=== PATIENT | male | born 1970 | race Caucasian/White ===

== ENCOUNTER → 2018-03-20 19:04 | Outpatient (CLI) | payer OTHER, SELFPAY ==
--- NOTE | 2018-03-20 19:08 | DI.MRI.S_ITS ---
PROCEDURE: MR HEAD/BRAIN WO/W CON INDICATIONS: BENIGH NEOPLASM OF CRANIAL NERVE TECHNIQUE: Noncontrast axial T1 spin echo, axial T2 fast spin echo, sagittal and axial FLAIR, coronal T2 fast spin echo, axial gradient echo, axial diffusion and ADC through the brain. After the administration of contrast, axial and coronal 3D VIBE or T1 spin echo with fat saturation through the brain. COMPARISON: [facility], MR, MR BRAIN WITH/WITHOUT CONTRAST, 06/19/2017, 8:14. FINDINGS: Image quality: Excellent. CSF Spaces: Basal cisterns are patent. No extra-axial fluid collections. Ventricles are normal in size and shape. Brain: No midline shift. No acute intracranial bleeds or masses. Mild relatively increased dural enhancement deep to the left parietal craniotomy is present, as before. No regions of masslike or nodular intracranial enhancement are present. The brainstem appears normal. Diffusion-weighted images demonstrate no acute ischemic insults. No chronic ischemic insults. Normal intravascular flow voids are present. Skull and face: Status post left parietal craniotomy. Ill-defined enhancement within the left parietal calvarium extending into the left scalp has increased, currently measuring roughly 15 mm in thickness (previously measuring 12 mm in thickness). Orbits appear normal. Sinuses: Sinuses and mastoids appear clear. IMPRESSION: 1. Progressive left parietal calvarial and scalp lesion, compatible with progressive meningioma/schwannoma. No evidence of intracranial extension. Dictated by: Celena Greene M.D. on 03/21/2018 at 10:17 Approved by: Celena Greene M.D. on 03/21/2018 at 10:23
== END ==
PROVIDERS: Visit Provider Neurological Surgery
DX: D33.3 Benign neoplasm of cranial nerves (principal)
CPT/HCPCS: 70553; A9579

== ENCOUNTER → 2019-11-13 12:33 | Outpatient (CLI) | payer OTHER, SELFPAY ==
--- NOTE | 2019-11-13 | DI.MRI.S_ITS ---
PROCEDURE: MR HEAD/BRAIN WO/W CON INDICATIONS: Benign neoplasm of meninges, unspecified TECHNIQUE: Noncontrast axial T1 spin echo, axial T2 fast spin echo, sagittal and axial FLAIR, coronal T2 fast spin echo, axial gradient echo, axial diffusion and ADC through the brain. After the administration of contrast, axial and coronal 3D VIBE or T1 spin echo with fat saturation through the brain. COMPARISON: [facility], CR, XR SKULL 4VW, 07/26/2015, 9:57. [facility], MR, MR BRAIN W&WO CON, 08/10/2015, 10:21. [facility], MR, MR HEAD/BRAIN WO/W CON, 03/20/2018, 19:17. FINDINGS: Image quality: Excellent. CSF Spaces: Basal cisterns are patent. No extra-axial fluid collections. Ventricles are normal in size and shape. Brain: No midline shift. No intracranial bleeds or brain tissue masses. There is, however, a band of dural thickening that is relatively thin but has been previously present along the paramedian left parietal lobe, with overlying calvarial thickening and distortion. This has been present since 08/10/15 brain MRI, and biplane film imaging the calvarial thickening includes a periosteal thickening and proliferative pattern. There is, also from a 07/26/15 plain film study of the calvarium. No additional area of abnormal intracranial enhancement. The brainstem appears normal. Diffusion-weighted images demonstrate no acute ischemic insults. No chronic ischemic insults. Normal intravascular flow voids are present. Skull and face: Calvarial marrow is normal in signal. Orbits appear normal. Sinuses: Sinuses and mastoids appear clear. IMPRESSION: Unusual pattern of a thin meningeal enhancing lesion over the left paramedian parietal brain parenchyma, likely a plaque-like meningioma, with a calvarial periosteal proliferative pattern of thickening initially visualized in July 2015 and not appreciably worsened considering slight differences in technique. Dictated by: Herberth Serrano M.D. on 11/13/2019 at 15:38 Approved by: Herberth Serrano M.D. on 11/13/2019 at 15:55
== END ==
PROVIDERS: PCP Internal Medicine; Referring Provider Internal Medicine; Visit Provider Neurological Surgery
DX: D32.9 Benign neoplasm of meninges, unspecified (principal)
CPT/HCPCS: 70553; A9579

== ENCOUNTER → 2020-12-13 14:55 | Outpatient (CLI) | payer OTHER, SELFPAY ==
--- NOTE | 2020-12-13 15:00 | DI.RAD.S_ITS ---
PROCEDURE: XR FOOT LT 2V INDICATIONS: PAIN TECHNIQUE: 2 views of the foot were acquired. COMPARISON: None. FINDINGS: Bones: No fractures or dislocations. No suspicious bony lesions. Mild hallux valgus metatarsus prima varus alignment and medial bunion. Mild 1st MTP and diffuse interphalangeal joint space narrowing. Soft tissues: No tibiotalar joint effusion. Achilles tendon appears normal. IMPRESSION: 1. Mild hallux valgus alignment and medial bunion. 2. Mild 1st MTP and diffuse interphalangeal joint degeneration. Dictated by: Juan Antonio Pringle RR Interpreted: Jose Chávez MD on 12/13/2020 at 15:33 Transcribed by: ESEQUIEL on 12/13/2020 at 15:33 Approved by: Jose Chávez M.D. on 12/13/2020 at 17:08
--- NOTE | 2020-12-13 15:00 | DI.MRI.S_ITS ---
PROCEDURE: MR HEAD/BRAIN WO/W CON INDICATIONS: BENIGN NEOPLASISMS TECHNIQUE: Noncontrast axial T1 spin echo, axial T2 fast spin echo, sagittal and axial FLAIR, coronal T2 fast spin echo, axial gradient echo, axial diffusion and ADC through the brain. After the administration of contrast, axial and coronal 3D VIBE or T1 spin echo with fat saturation through the brain. COMPARISON: [facility], MR, MR HEAD/BRAIN WO/W CON, 11/13/2019, 13:00. [facility], MR, MR BRAIN W&WO CON, 08/10/2015, 10:21. [facility], MR, MR HEAD/BRAIN WO/W CON, 03/20/2018, 19:17. FINDINGS: Image quality: Excellent. CSF Spaces: Basal cisterns are patent. No extra-axial fluid collections. Ventricles are normal in size and shape. Brain: No midline shift. No intracranial bleeds or masses. Left parietal dura at is thickened with slightly irregular enhancement in the region of prior left parietal craniotomy. Dural thickening and slightly irregular enhancement is not significantly changed compared to March 20, 2018. The brainstem appears normal. Diffusion-weighted images demonstrate no acute ischemic insults. No chronic ischemic insults. Normal intravascular flow voids are present. Dural sinuses demonstrate normal postcontrast enhancement. Skull and face: Postsurgical changes compatible prior left craniotomy are stable compared to prior exams. There is and ill-defined heterogeneously enhancing mass in the left parietal calvarium and scalp that measures approximately 4.7 x 2.5 x 1.8 centimeters in the current study (4.1 x 2.2 x 1.5 centimeter previously). Orbits appear normal. Sinuses: Mucous retention cyst versus polyps noted in the maxillary sinuses. The mastoids appear clear. IMPRESSION: 1. Left parietal calvarial in scalp enhancing lesion increased in size compared to March 21, 2018 consistent with progression of neoplasm. 2. Otherwise, stable examination. Dictated by: Viry Bethea MD, PhD on 12/13/2020 at 17:08 Approved by: Viry Bethea MD, PhD on 12/13/2020 at 17:18
--- NOTE | 2020-12-13 15:18 | DI.RAD.S_ITS ---
PROCEDURE: XR ANKLE LT 2V INDICATIONS: PAIN TECHNIQUE: 3 views of the ankle were acquired. COMPARISON: None. FINDINGS: Bones: No fractures or dislocations. Ankle mortise is normally aligned. No suspicious bony lesions. Soft tissues: No tibiotalar joint effusion. Achilles tendon appears normal. IMPRESSION: No definite radiographic abnormality. If pain persists with conservative management, consider cross sectional imaging such as CT or MRI for further assessment. Dictated by: Juan Antonio Pringle RR Interpreted: Jose Chávez MD on 12/13/2020 at 15:34 Transcribed by: ESEQUIEL on 12/13/2020 at 15:34 Approved by: Jose Chávez M.D. on 12/13/2020 at 17:08
[2020-12-13 16:40] LABS: Add Manual Diff / Slide Review NO; Basophils Absolute Auto 100 /uL (0-100); Basophils Percent Auto 0.9 % (0-2); Eosinophils Absolute Auto 100 /uL (0-450); Eosinophils Percent Auto 1.4 % (2-4); Hematocrit 41.8 % (41-53); Hemoglobin 13.9 g/dL (13.5-17.5); Lymphocytes Absolute Auto 2900 /uL (1100-4500); Lymphocytes Percent Auto 32.9 % (25-40); Mean Corpuscular HGB Conc 33.2 % (30-36); Mean Corpuscular Volume 90.4 fL (80-100); Monocytes Absolute Auto 700 /uL (0-900); Monocytes Percent Auto 7.8 % (3-14); Neutrophils Absolute Auto 5100 /uL (1500-7000); Platelet Count 228 X10^3/uL (150-400); Red Blood Cell Count 4.62 X10^6/uL (4.5-5.9); Red Cell Distribution Width 13.7 % (11.6-14.8); White Blood Cell Count 8.9 X10^3/uL (4.5-11.0)
[2020-12-13 17:19] LABS: Erythrocyte Sedimentation Rate 1 MM/HR (0-15)
[2020-12-14 17:26] LABS: Alanine Aminotransferase 22 IU/L (<50); Albumin 4.5 g/dL (3.5-5.0); Albumin Globulin Ratio 1.5 (1.0-2.8); Alkaline Phosphatase 75 U/L (38-126); Aspartate Aminotransferase 23 IU/L (17-59); BUN Creatinine Ratio 21.7 (6-22); Bilirubin Total 0.3 mg/dL (0.2-1.3); Blood Urea Nitrogen 25 mg/dL (9-20); C-Reactive Protein Quant 0.5 mg/dL (<1.0); Calcium 9.8 mg/dL (8.4-10.2); Carbon Dioxide 23 mmol/L (22-32); Chloride 109 mmol/L (98-107); Estimated Glomerular Filt Rate > 60.0 mL/min (>60); Glucose 97 mg/dL (70-100); HEMOLYSIS < 15 (0-50); Potassium 3.8 mmol/L (3.4-5.1); Sodium 140 mmol/L (137-145); Total Protein 7.5 g/dL (6.3-8.2); Uric Acid 8.8 mg/dL (3.5-8.5)
[2020-12-14 17:28] LABS: Rheumatoid Factor < 8.6 IU/mL (<12.0)
[2020-12-16 21:07] LABS: CCP Antibodies IgG/IgA 6 units (0-19)
== END ==
PROVIDERS: Internal Medicine Rheumatology; PCP Internal Medicine; Referring Provider Neurological Surgery; Visit Provider Neurological Surgery
DX: D32.9 Benign neoplasm of meninges, unspecified (principal); M79.672 Pain in left foot; M20.12 Hallux valgus (acquired), left foot; M21.612 Bunion of left foot; M19.072 Primary osteoarthritis, left ankle and foot
CPT/HCPCS: 70553; 73600; 73620; 80053; 84550; 85025; 85651; 86140; 86200; 86430

== ENCOUNTER → 2021-12-14 18:56 | Outpatient (CLI) | payer OTHER, SELFPAY ==
--- NOTE | 2021-12-14 | DI.MRI.S_ITS ---
PROCEDURE: MR HEAD/BRAIN WO/W CON INDICATIONS: benign neoplasm of meninges, unspecified TECHNIQUE: Noncontrast axial T1 spin echo, axial T2 fast spin echo, sagittal and axial FLAIR, coronal T2 fast spin echo, axial gradient echo, axial diffusion and ADC through the brain. After the administration of contrast, axial and coronal and sagittal 3D VIBE or T1 spin echo with fat saturation through the brain. COMPARISON: [facility], , MR HEAD/BRAIN WO/W CON, 12/13/2020, 16:01. FINDINGS: Image quality: Excellent. CSF Spaces: Basal cisterns are patent. No extra-axial fluid collections. Ventricles are normal in size and shape. Brain: No midline shift. No intracranial bleeds or masses. No abnormal intracranial enhancement. The brainstem appears normal. Diffusion-weighted images demonstrate no acute ischemic insults. No chronic ischemic insults. Normal intravascular flow voids are present. Skull and face: Postsurgical sequelae within the left superior parietal calvarium. The overlying region of ill-defined enhancement within the scalp and subcutaneous fat is increased slightly in size, measuring roughly 45 mm anteroposterior by 20 mm craniocaudal by 37 mm transverse. This lesion appears to extend into the underlying left superior parietal calvarium, and extends to the inner table, as before. No evidence of intracranial extension is present. Orbits appear normal. Sinuses: Moderate bilateral mastoid fluid. Bilateral maxillary sinus retention cysts present. IMPRESSION: 1. Postsurgical sequelae. 2. Increased ill-defined enhancing soft tissue lesion within the left parietal scalp and calvarium, consistent with progressive neoplasm. 3. Sinus and mastoid disease. Dictated by: Celena Greene M.D. on 12/15/2021 at 8:38 Approved by: Celena Greene M.D. on 12/15/2021 at 8:42
== END ==
PROVIDERS: PCP Internal Medicine; Referring Provider Neurological Surgery; Visit Provider Neurological Surgery
DX: D32.9 Benign neoplasm of meninges, unspecified (principal); J32.8 Other chronic sinusitis
CPT/HCPCS: 70553; A9579

== ENCOUNTER → 2022-07-14 13:06 | Outpatient (CLI) | payer OTHER, SELFPAY ==
--- NOTE | 2022-07-14 | DI.CT.S_ITS ---
PROCEDURE: CT HEAD/BRAIN WO CON INDICATIONS: HEADACHES STATUS POST CRANIOTOMY TECHNIQUE: Noncontrast 4.5 mm thick angled axial sections acquired from the foramen magnum to the vertex, with coronal and sagittal reformats. For radiation dose reduction, the following was used: automated exposure control, adjustment of mA and/or kV according to patient size. COMPARISON: [facility], MR, MR HEAD/BRAIN WO/W CON, 12/13/2020, 16:01. [facility], MR, MR HEAD/BRAIN WO/W CON, 12/14/2021, 19:16. FINDINGS: Image quality: Excellent. CSF spaces: Basal cisterns are patent. No extra-axial fluid collections. Ventricles are normal in size and shape. Brain: Resection change is seen involving the posterior aspect of the left cerebral hemisphere. No midline shift. No intracranial masses or hemorrhage. Ferris-white matter interface is normal. Skull and face: Left posterior craniotomy change is seen. Calvarium and visualized facial bones are intact, without suspicious lesions. Sinuses: Visualized sinuses and mastoids are clear. IMPRESSION: Left posterior craniotomy change, with resection change noted on the left posteriorly. If it would be helpful for clinical management decision making, please consider a dedicated, scheduled brain MRI for further evaluation (assuming that there is no contraindication). Dictated by: Ivan Ybarra M.D. on 07/14/2022 at 12:43 Approved by: Ivan Ybarra M.D. on 07/14/2022 at 12:45
== END ==
PROVIDERS: PCP Internal Medicine; Referring Provider Physician Assistant; Visit Provider Physician Assistant
DX: D32.9 Benign neoplasm of meninges, unspecified (principal); R51.9 Headache, unspecified; Z98.890 Other specified postprocedural states
CPT/HCPCS: 70450

== ENCOUNTER 2022-07-17 06:26 | Emergency (ER) | payer BC, SELFPAY ==
[2022-07-17] VITALS (54 sets, daily range): BP systolic 120–170; BP diastolic 56–93; PULSE 66–90; RESP 13–24; TEMP 37.2; O2SAT 92–100; BMI 42.5
--- NOTE | 2022-07-17 06:41 | DI.CT.S_ITS ---
PROCEDURE: CT ANGIO HEAD AND NECK INDICATIONS: HOOKS, slurring, recent meningioma resection TECHNIQUE: After the administration of intravenous contrast, 1 mm thick sections acquired from the aortic arch through the [place]. Post-contrast 4.5 mm thick sections then re-acquired from the foramen magnum to the vertex. 3-dimensional jjhwnba-vapglevio-lfcxkzdhpi (MIP) and/or volume rendering reformats were acquired of the central intracranial vasculature and neck separately. For radiation dose reduction, the following was used: automated exposure control, adjustment of mA and/or kV according to patient size. COMPARISON: [facility], MR, MR HEAD/BRAIN WO/W CON, 11/13/2019, 13:00. [facility], MR, MR HEAD/BRAIN WO/W CON, 03/20/2018, 19:17. [facility], CT, CT HEAD/BRAIN WO CON, 07/17/2022, 6:51. [facility], CT, CT HEAD/BRAIN WO CON, 07/14/2022, 13:19. [facility], MR, MR HEAD/BRAIN WO/W CON, 12/14/2021, 19:16. [facility], MR, MR HEAD/BRAIN WO/W CON, 12/13/2020, 16:01. FINDINGS: Image quality: Excellent. BRAIN: CSF spaces: Ventricles are normal in size and shape. Basal cisterns are patent. No extra-axial fluid collections. Brain: There is an area of hypodensity in the left parietal lobe, which appears minimally changed from 07/14/2022, but new since 12/14/2021, most likely related to recent craniotomy5. No midline shift. No intracranial bleeds or masses. Ferris-white matter interface appears intact. Skull and face: Postsurgical changes related to left parietal craniotomy. Calvarium and facial bones appear intact, without suspicious lesions. Orbits appear normal. Sinuses: There are mucous retention cysts or polyps in maxillary sinuses bilaterally. The mastoids are clear. HEAD CT ANGIOGRAPHY: Anterior circulation: Intracranial internal carotid arteries are normal in size and flow. The flow within the paired anterior cerebral arteries is normal and symmetric. The flow within the middle cerebral arteries is normal and symmetric. The anterior communicating artery is seen. No aneurysms are seen. Posterior circulation: Visualized portions of the vertebral arteries demonstrate normal caliber, and join to form a normal appearing basilar artery. Flow within the posterior cerebral arteries is normal and symmetric. No aneurysms are seen. NECK CT ANGIOGRAPHY: Carotid system: The great vessels demonstrate a conventional anatomy as they arise from the aortic arch. The origins of the common carotid arteries appear patent. The common carotid arteries demonstrate normal caliber and courses. The bifurcation regions are both widely patent. The internal carotid arteries demonstrate normal calibers and courses. Posterior circulation: The origins of the vertebral arteries both appear widely patent. The more superior extracranial portions of both vertebral arteries also demonstrate normal courses and calibers. They join to form a normal appearing basilar artery. Soft tissues: Visualized neck soft tissues demonstrate no suspicious abnormalities. Bones: No suspicious bony lesions. Visualized cervical spine appears normally aligned. IMPRESSION: 1. Left parietal craniotomy. Hypodensity in the left parietal lobe appears minimally changed since 07/14/2022, but new since 12/14/2022, presumably related to recent surgery. Recommend clinical correlation and comparison to more recent outside imaging studies, if available. If clinical symptoms persist or clinical suspicion for acute pathology is high, MRI is recommended for further evaluation. 2. No hemodynamic significant stenosis in anterior or posterior circulations. 3. No hemodynamic significant stenosis in cervical carotid arteries or vertebral arteries bilaterally. No significant discrepancy with the courtroom clerk radiology preliminary report. Any quantitative measurements of stenosis were performed using NASCET criteria. Dictated by: Joann Figueroa M.D. on 07/17/2022 at 7:50 Approved by: Joann Figueroa M.D. on 07/17/2022 at 8:44
--- NOTE | 2022-07-17 06:42 | DI.CT.S_ITS ---
PROCEDURE: CT HEAD/BRAIN WO CON INDICATIONS: severe HOOKS, slurring words upon waking TECHNIQUE: Noncontrast 4.5 mm thick angled axial sections acquired from the foramen magnum to the vertex, with coronal and sagittal reformats. For radiation dose reduction, the following was used: automated exposure control, adjustment of mA and/or kV according to patient size. COMPARISON: [facility], MR, MR HEAD/BRAIN WO/W CON, 12/14/2021, 19:16. [facility], MR, MR HEAD/BRAIN WO/W CON, 12/13/2020, 16:01. [facility], CT, CT HEAD/BRAIN WO CON, 07/14/2022, 13:19. FINDINGS: Image quality: Excellent. CSF spaces: Basal cisterns are patent. No extra-axial fluid collections. Ventricles are normal in size and shape. Brain: Postsurgical changes are seen in the left parietal lobe with hypodensity compatible with cerebral edema. No midline shift. No intracranial masses or hemorrhage. Ferris-white matter interface is normal. Skull and face: Left parietal craniotomy. Calvarium and visualized facial bones are intact, without suspicious lesions. Sinuses: Bilateral maxillary sinus mucous retention cysts or polyps. The mastoids are clear. IMPRESSION: 1. Stable postsurgical changes in left parietal region. 2. Bilateral maxillary sinus disease. No significant discrepancy with the faculty neuropsychologist radiology preliminary report. Dictated by: Joann Figueroa M.D. on 07/17/2022 at 7:46 Approved by: Joann Figueroa M.D. on 07/17/2022 at 7:49
--- NOTE | 2022-07-17 06:44 | ED.AMS ---
HPI - Altered Mental Status <Theron Mahajan DO - Last Filed: 07/17/22 22:59> General Chief Complaint: Headache Stated Complaint: HX david surgery T-30/ headache/cant speak Time Seen by Provider: 07/17/22 06:41 Related Data Previous Rx's Medication Instructions Recorded colchicine 0.6 mg tablet 0.6 mg PO DAILY #14 tabs 03/13/19 Allergies Allergy/AdvReac Type Severity Reaction Status Date / Time hydrocodone [From Vicodin] AdvReac Intermediate Vomiting Verified 07/17/22 17:17 <Nesha Chávez DO - Last Filed: 07/17/22 19:36> History of Present Illness HPI narrative: This is a 51-year-old male with history of craniotomy May 23 for meningioma, patient's only other medication is allopurinol for gout who presents with complaint of difficulty with talking, expressive aphasia, persistent headaches that have been worsening since July 13. Patient's states that they called [facility] CT surgeons ordered head CT on the which was obtained and did not show any acute changes or swelling. states that headaches have been coming more persistent he is described as shooting from his brain to his eye particularly on the right side. She states he woke up this morning and was not really make any sense and seemed like he was having difficulty saying what he wanted to say. He is had chills and been warm intermittently, no objective fevers but states there lost their thermometer. He has been complaining of sinus congestion and pressure. No complaints of chest pain, no shortness of breath. He has not had any nausea or vomiting, no incontinence of stool or urine. Normal bowel movements. She states this morning he was able to get up and ambulate to the car but that he ran into the door of the car. She states he seems confused. Patient has not had anything for his headache. Allergies state Vicodin but states he is not really allergic, she states no known drug allergies. He does use tobacco daily, no alcohol or illicit. He is had prior ACL replacement had craniotomy in May of 2022 and had a core biopsy in 2015 of the meningioma. Patient's states his only medication is allopurinol. Dr. Feliciano at [facility] performed his surgery. <Nesha Chávez DO - Last Filed: 07/17/22 19:36> Review of Systems ROS Unobtainable: All systems reviewed & are unremarkable except as noted in HPI and below (obtained mainly from spouse) Patient History <Theron DO Keyshawn - Last Filed: 07/17/22 22:59> Social History Smoking Status: Current every day smoker Exam <Theronhandy Mahajan DO - Last Filed: 07/17/22 22:59> Initial Vital Signs Initial Vital Signs: Vital Signs Pulse Rate 83 07/17/22 06:44 Respiratory Rate 16 07/17/22 06:44 Pulse Oximetry 99 07/17/22 06:44 <Nesha Chávez DO - Last Filed: 07/17/22 19:36> Narrative Exam Narrative: GEN: Obese male, alert and oriented self and location, answer some questions but does not follow commands, patient appears to be in moderate to severe distress. HEENT: Atraumatic, pupils are equal round reactive to light, extraocular movements are intact, nares are clear, TMs are clear with no fluid, there is no conjunctival pallor. Throat is clear without any exudates, erythema, tonsillar enlargement or uvular deviation, difficult to assess facial droop. Patient does not follow coming to smile. Possible on the right. No obvious palsy noted. HEART: Regular rate and rhythm without murmur, clicks, rubs. pulses are equal in upper and lower extremities LUNGS:Lungs clear to auscultation, no wheezes, rales, crackles, chest moves symmetrically ABD:bowel sounds normal, soft, non-tender, no guarding, rebound, rigidity, no masses noted, no hepatosplenomegaly :No CVA tenderness MSCL: Non-tender, no muscle atrophy, muscles strength 5/5 upper and lower extremities, full range of motion, patient does appear to have some drift on the right but patient did not follow all commands for me to fully assess. NEURO:CN 2-12 intact, sensation normal, reflexes 2/4 upper and lower extremities. finger nose finger test performed on left but not on right, heel mendez test not tested. SKIN: No rash, no erythema or other skin changes noted. Initial Vital Signs Initial Vital Signs: Vital Signs Pulse Rate 83 07/17/22 06:44 Respiratory Rate 16 07/17/22 06:44 Pulse Oximetry 99 07/17/22 06:44 Scores <Theron Mahajan, DO - Last Filed: 07/17/22 22:59> GCS [place] coma scale total score: 13 <Nesha Chávez, DO - Last Filed: 07/17/22 19:36> GCS Wilfredo coma scale eye opening: Spontaneous [place] coma scale verbal response: Confused [place] coma scale motor response: Localising (occasionally follows commands) [place] coma scale total score: 13 Course <Theron Mahajan, DO - Last Filed: 07/17/22 22:59> Orders Ordered: Acetaminophen (Acetaminophen 325 Mg Tablet) 650 mg PO Q4H PRN PRN Reason: Pain, Moderate (4-6) Stop: 07/20/22 17:12 Last Admin: 07/17/22 17:32 Dose: 650 mg Documented By: CHIQUI Enoxaparin Sodium (Enoxaparin 100 Mg/Ml Syringe) 140 mg SUBCUT BID [facility] Last Admin: 07/17/22 21:19 Dose: 140 mg Documented By: Admin: 07/17/22 10:40 Dose: 140 mg Documented By: SAL Levetiracetam 1,000 mg/ Sodium (Chloride) 110 mls @ 440 mls/hr IV BID [facility] Last Infusion: 07/17/22 21:30 Dose: 0 mls/hr Documented By: Admin: 07/17/22 21:10 Dose: 440 mls/hr Documented By: Infusion: 07/17/22 11:17 Dose: 0 mls/hr Documented By: Admin: 07/17/22 10:41 Dose: 440 mls/hr Documented By: SAL Ketorolac Tromethamine (Ketorolac 30 Mg/Ml Vial) 15 mg IV Q6HR PRN PRN Reason: Pain, Moderate (4-6) Naloxone HCl (Naloxone 0.4 Mg/Ml Vial) 0.2 mg IV Q2MIN PRN PRN Reason: Opiate Reversal Oxycodone HCl (Oxycodone Ir 5 Mg Tablet) 5 mg PO Q3H PRN PRN Reason: Pain, Severe (7-10) Last Admin: 07/17/22 17:32 Dose: 5 mg Documented By: CHIQUI Discontinued Medications Dexamethasone (Dexamethasone 10 Mg/Ml Vial) 10 mg IV NOW ONE Stop: 07/17/22 08:02 Last Admin: 07/17/22 08:10 Dose: 10 mg Documented By: RAMANA Enoxaparin Sodium (Enoxaparin 40 Mg/0.4 Ml Syringe) 140 mg 1 mg/kg (140 mg) SUBCUT BID [facility] Cefepime HCl 2 gm/ Sodium (Chloride) 100 mls @ 200 mls/hr IV NOW ONE Stop: 07/17/22 08:04 Last Infusion: 07/17/22 09:10 Dose: 0 mls/hr Documented By: Infusion: 07/17/22 08:37 Dose: 200 mls/hr Documented By: Infusion: 07/17/22 08:10 Dose: 0 mls/hr Documented By: Admin: 07/17/22 08:10 Dose: 200 mls/hr Documented By: RAMANA Vancomycin HCl/Dextrose (Vancomycin) 2,000 mg in 400 mls @ 200 mls/hr IV NOW ONE Stop: 07/17/22 10:11 Last Infusion: 07/17/22 11:44 Dose: 0 mls/hr Documented By: Admin: 07/17/22 09:27 Dose: 200 mls/hr Documented By: RAMANA Ketorolac Tromethamine (Ketorolac 30 Mg/Ml Vial) 15 mg IV NOW ONE Stop: 07/17/22 10:02 Last Admin: 07/17/22 10:41 Dose: 15 mg Documented By: SAL Morphine Sulfate (Morphine 4 Mg/Ml Inj) 4 mg IV NOW ONE Stop: 07/17/22 07:57 Last Admin: 07/17/22 08:02 Dose: 4 mg Documented By: RAMANA Ondansetron HCl (Ondansetron 4 Mg/2 Ml Inj) 4 mg IV NOW ONE Stop: 07/17/22 07:57 Last Admin: 07/17/22 08:02 Dose: 4 mg Documented By: RAMANA Vital Signs Vital signs: Vital Signs - 8 hr 07/17/22 15:00 07/17/22 15:01 07/17/22 15:01 Pulse Rate 69 69 Respiratory Rate Blood Pressure 161/89 H Pulse Oximetry 95 94 Oxygen Delivery Method Room Air 07/17/22 15:16 07/17/22 15:16 07/17/22 15:30 Pulse Rate 69 Respiratory Rate Blood Pressure 133/62 133/66 Pulse Oximetry 95 Oxygen Delivery Method 07/17/22 15:30 07/17/22 15:45 07/17/22 15:45 Pulse Rate 68 77 Respiratory Rate Blood Pressure 129/74 Pulse Oximetry 95 Oxygen Delivery Method Room Air 07/17/22 16:00 07/17/22 16:00 07/17/22 16:30 Pulse Rate 71 69 Respiratory Rate 18 Blood Pressure 141/75 H Pulse Oximetry 94 98 Oxygen Delivery Method Room Air 07/17/22 16:31 07/17/22 16:31 07/17/22 17:00 Pulse Rate 70 68 Respiratory Rate Blood Pressure 158/87 H Pulse Oximetry 96 94 Oxygen Delivery Method 07/17/22 17:01 07/17/22 17:01 07/17/22 17:25 Pulse Rate 70 70 Respiratory Rate Blood Pressure 142/90 H Pulse Oximetry 95 94 Oxygen Delivery Method Room Air 07/17/22 17:31 07/17/22 19:42 07/17/22 20:00 Pulse Rate 76 81 Respiratory Rate 20 Blood Pressure 154/88 H Pulse Oximetry 97 Oxygen Delivery Method Room Air 07/17/22 20:30 07/17/22 21:00 07/17/22 21:30 Pulse Rate 75 72 75 Respiratory Rate 20 22 17 Blood Pressure Pulse Oximetry 93 95 99 Oxygen Delivery Method Room Air 07/17/22 21:35 07/17/22 21:35 07/17/22 22:00 Pulse Rate 74 67 Respiratory Rate 13 19 Blood Pressure 141/81 H Pulse Oximetry 100 96 Oxygen Delivery Method Room Air Room Air 07/17/22 22:30 Pulse Rate 69 Respiratory Rate 16 Blood Pressure Pulse Oximetry 97 Oxygen Delivery Method Room Air <Nesha Chávez DO - Last Filed: 07/17/22 19:36> Orders Ordered: Acetaminophen (Acetaminophen 325 Mg Tablet) 650 mg PO Q4H PRN PRN Reason: Pain, Moderate (4-6) Stop: 07/20/22 17:12 Last Admin: 07/17/22 17:32 Dose: 650 mg Documented By: CHIQUI Enoxaparin Sodium (Enoxaparin 100 Mg/Ml Syringe) 140 mg SUBCUT BID [facility] Last Admin: 07/17/22 21:19 Dose: 140 mg Documented By: Admin: 07/17/22 10:40 Dose: 140 mg Documented By: SAL Levetiracetam 1,000 mg/ Sodium (Chloride) 110 mls @ 440 mls/hr IV BID [facility] Last Infusion: 07/17/22 21:30 Dose: 0 mls/hr Documented By: Admin: 07/17/22 21:10 Dose: 440 mls/hr Documented By: Infusion: 07/17/22 11:17 Dose: 0 mls/hr Documented By: Admin: 07/17/22 10:41 Dose: 440 mls/hr Documented By: MLSara Ketorolac Tromethamine (Ketorolac 30 Mg/Ml Vial) 15 mg IV Q6HR PRN PRN Reason: Pain, Moderate (4-6) Naloxone HCl (Naloxone 0.4 Mg/Ml Vial) 0.2 mg IV Q2MIN PRN PRN Reason: Opiate Reversal Oxycodone HCl (Oxycodone Ir 5 Mg Tablet) 5 mg PO Q3H PRN PRN Reason: Pain, Severe (7-10) Last Admin: 07/17/22 17:32 Dose: 5 mg Documented By: CHIQUI Discontinued Medications Dexamethasone (Dexamethasone 10 Mg/Ml Vial) 10 mg IV NOW ONE Stop: 07/17/22 08:02 Last Admin: 07/17/22 08:10 Dose: 10 mg Documented By: RAMANA Enoxaparin Sodium (Enoxaparin 40 Mg/0.4 Ml Syringe) 140 mg 1 mg/kg (140 mg) SUBCUT BID [facility] Cefepime HCl 2 gm/ Sodium (Chloride) 100 mls @ 200 mls/hr IV NOW ONE Stop: 07/17/22 08:04 Last Infusion: 07/17/22 09:10 Dose: 0 mls/hr Documented By: Infusion: 07/17/22 08:37 Dose: 200 mls/hr Documented By: Infusion: 07/17/22 08:10 Dose: 0 mls/hr Documented By: Admin: 07/17/22 08:10 Dose: 200 mls/hr Documented By: RAMANA Vancomycin HCl/Dextrose (Vancomycin) 2,000 mg in 400 mls @ 200 mls/hr IV NOW ONE Stop: 07/17/22 10:11 Last Infusion: 07/17/22 11:44 Dose: 0 mls/hr Documented By: Admin: 07/17/22 09:27 Dose: 200 mls/hr Documented By: RAMANA Ketorolac Tromethamine (Ketorolac 30 Mg/Ml Vial) 15 mg IV NOW ONE Stop: 07/17/22 10:02 Last Admin: 07/17/22 10:41 Dose: 15 mg Documented By: SAL Morphine Sulfate (Morphine 4 Mg/Ml Inj) 4 mg IV NOW ONE Stop: 07/17/22 07:57 Last Admin: 07/17/22 08:02 Dose: 4 mg Documented By: RAMANA Ondansetron HCl (Ondansetron 4 Mg/2 Ml Inj) 4 mg IV NOW ONE Stop: 07/17/22 07:57 Last Admin: 07/17/22 08:02 Dose: 4 mg Documented By: RAMANA Reevaluation(s) Reevaluation #1: Rechecked, patient's expressive aphasia significantly improve patient's mentation improved this seems much more in line with possible postictal state from seizure activity. No witnessed seizure activity in the department. Patient's has been in the room throughout stay. Time: 11:15 Consultations Consultation #1: [facility] Neurosurgery, Dr. Luis: Discussed patient's findings today. Concerned about sagittal sinus thrombosis who reviewed images does not appreciate thrombosis. Patient does not appear acutely infected he suspect possibly seizure activity or possible sagittal sinus thrombosis. He did review the images himself he does not appreciated but asked us to see if Radiology can take a look if they feel that they can see well enough with the images does not require MR venogram but if not MR venogram would be recommended if we can obtain. We discussed we do not have EEG capabilities. Plan to start Keppra 1000 mg b.i.d., Lovenox DVT dosing on Dr. Luis's recommendations and accepted for transferred but will likely be delayed as there is no capacity currently. Time: 10:41 Consultation #2: Dr. Figueroa, Radiology, we will review images and call back regarding sagittal sinus thrombosis. Not the right type of exam but not definitive thrombosis. MR venogram would be appropriate next step. Time: 10:42 Vital Signs Vital signs: Vital Signs - 8 hr 07/17/22 15:00 07/17/22 15:01 07/17/22 15:01 Pulse Rate 69 69 Respiratory Rate Blood Pressure 161/89 H Pulse Oximetry 95 94 Oxygen Delivery Method Room Air 07/17/22 15:16 07/17/22 15:16 07/17/22 15:30 Pulse Rate 69 Respiratory Rate Blood Pressure 133/62 133/66 Pulse Oximetry 95 Oxygen Delivery Method 07/17/22 15:30 07/17/22 15:45 07/17/22 15:45 Pulse Rate 68 77 Respiratory Rate Blood Pressure 129/74 Pulse Oximetry 95 Oxygen Delivery Method Room Air 07/17/22 16:00 07/17/22 16:00 07/17/22 16:30 Pulse Rate 71 69 Respiratory Rate 18 Blood Pressure 141/75 H Pulse Oximetry 94 98 Oxygen Delivery Method Room Air 07/17/22 16:31 07/17/22 16:31 07/17/22 17:00 Pulse Rate 70 68 Respiratory Rate Blood Pressure 158/87 H Pulse Oximetry 96 94 Oxygen Delivery Method 07/17/22 17:01 07/17/22 17:01 07/17/22 17:25 Pulse Rate 70 70 Respiratory Rate Blood Pressure 142/90 H Pulse Oximetry 95 94 Oxygen Delivery Method Room Air 07/17/22 17:31 07/17/22 19:42 07/17/22 20:00 Pulse Rate 76 81 Respiratory Rate 20 Blood Pressure 154/88 H Pulse Oximetry 97 Oxygen Delivery Method Room Air 07/17/22 20:30 07/17/22 21:00 07/17/22 21:30 Pulse Rate 75 72 75 Respiratory Rate 20 22 17 Blood Pressure Pulse Oximetry 93 95 99 Oxygen Delivery Method Room Air 07/17/22 21:35 07/17/22 21:35 07/17/22 22:00 Pulse Rate 74 67 Respiratory Rate 13 19 Blood Pressure 141/81 H Pulse Oximetry 100 96 Oxygen Delivery Method Room Air Room Air 07/17/22 22:30 Pulse Rate 69 Respiratory Rate 16 Blood Pressure Pulse Oximetry 97 Oxygen Delivery Method Room Air MDM - Altered Mental Status <Theron Mahajan, DO - Last Filed: 07/17/22 22:59> Lab Data 07/17/22 06:50 07/17/22 06:50 Labs: Lab Results 07/17/22 07/17/22 07/17/22 Range/Units 06:00 06:50 06:50 WBC 7.0 (4.5-11.0) X10^3/uL RBC 4.29 L (4.5-5.9) X10^6/uL Hgb 13.0 L (13.5-17.5) g/dL Hct 38.0 L (41-53) % MCV 88.6 (80-100) fL MCH 30.2 (26-34) PG MCHC 34.1 (30-36) % RDW 14.5 (11.6-14.8) % Plt Count 263 (150-400) X10^3/uL Neut % (Auto) 70.5 (50-75) % Lymph % (Auto) 21.0 L (25-40) % Delta % (Auto) 6.7 (3-14) % Eos % (Auto) 1.2 L (2-4) % Baso % (Auto) 0.6 (0-2) % Neut # (Auto) 4900 (8202-8256) /uL Lymph # (Auto) 1500 (1106-9629) /uL Delta # (Auto) 500 (0-900) /uL Eos # (Auto) 100 (0-450) /uL Baso # (Auto) 0 (0-100) /uL PT 13.3 H (10.1-12.7) SECONDS INR 1.2 (0.9-1.3) Sodium (137-145) mmol/L Potassium (3.4-5.1) mmol/L Chloride (98-107) mmol/L Carbon Dioxide (22-32) mmol/L BUN (9-20) mg/dL Creatinine (0.66-1.25) mg/dL Estimated GFR (>60) mL/min BUN/Creatinine Ratio (6-22) Glucose (70-100) mg/dL Lactate (0.7-2.1) mmol/L Calcium (8.4-10.2) mg/dL Magnesium (1.6-2.3) mg/dL Total Bilirubin (0.2-1.3) mg/dL AST (17-59) IU/L ALT (<50) IU/L Alkaline Phosphatase (38-126) U/L Total Creatine Kinase (55-170) U/L CK-MB (CK-2) CK-MB (CK-2) Rel Index Troponin I (0.01-0.034) ng/mL Total Protein (6.3-8.2) g/dL Albumin (3.5-5.0) g/dL Globulin (1.7-4.1) g/dL Albumin/Globulin Ratio (1.0-2.8) Lipase (23-300) U/L Procalcitonin 0.05 (<0.5) ng/mL Urine Color Urine Appearance Urine pH (4.5-8.0) Ur Specific [place] (1.000-1.035) Urine Protein (Negative) Urine Glucose (UA) (Negative) g/dL Urine Ketones (NEGATIVE) Urine Occult Blood (Negative) Urine Nitrate (Negative) Urine Bilirubin (NEGATIVE) Urine Urobilinogen (0.2) E.U./dL Ur Leukocyte Esterase (NEGATIVE) Urine RBC (0-5/HPF) Urine WBC (0-5/HPF) Ur Squamous Epith Cells (0-5/HPF) Urine Bacteria (None) Ur Culture Indicated? SARS-CoV-2 (PCR) (Negative) Influenza A (RT-PCR) (NEGATIVE) Influenza B (RT-PCR) (NEGATIVE) RSV (PCR) (Negative) 07/17/22 07/17/22 07/17/22 Range/Units 06:50 06:50 07:30 WBC (4.5-11.0) X10^3/uL RBC (4.5-5.9) X10^6/uL Hgb (13.5-17.5) g/dL Hct (41-53) % MCV (80-100) fL MCH (26-34) PG MCHC (30-36) % RDW (11.6-14.8) % Plt Count (150-400) X10^3/uL Neut % (Auto) (50-75) % Lymph % (Auto) (25-40) % Delta % (Auto) (3-14) % Eos % (Auto) (2-4) % Baso % (Auto) (0-2) % Neut # (Auto) (6781-0789) /uL Lymph # (Auto) (6282-8098) /uL Delta # (Auto) (0-900) /uL Eos # (Auto) (0-450) /uL Baso # (Auto) (0-100) /uL PT (10.1-12.7) SECONDS INR (0.9-1.3) Sodium 138 (137-145) mmol/L Potassium 3.5 (3.4-5.1) mmol/L Chloride 105 (98-107) mmol/L Carbon Dioxide 22 (22-32) mmol/L BUN 14 (9-20) mg/dL Creatinine 0.92 (0.66-1.25) mg/dL Estimated GFR > 60 (>60) mL/min BUN/Creatinine Ratio 15.2 (6-22) Glucose 125 H (70-100) mg/dL Lactate 1.5 (0.7-2.1) mmol/L Calcium 9.2 (8.4-10.2) mg/dL Magnesium 1.7 (1.6-2.3) mg/dL Total Bilirubin 0.4 (0.2-1.3) mg/dL AST 17 (17-59) IU/L ALT 20 (<50) IU/L Alkaline Phosphatase 75 (38-126) U/L Total Creatine Kinase 46 L (55-170) U/L CK-MB (CK-2) TNP CK-MB (CK-2) Rel Index TNP Troponin I < 0.012 (0.01-0.034) ng/mL Total Protein 7.6 (6.3-8.2) g/dL Albumin 4.5 (3.5-5.0) g/dL Globulin 3.1 (1.7-4.1) g/dL Albumin/Globulin Ratio 1.5 (1.0-2.8) Lipase 66 (23-300) U/L Procalcitonin (<0.5) ng/mL Urine Color Urine Appearance Urine pH (4.5-8.0) Ur Specific [place] (1.000-1.035) Urine Protein (Negative) Urine Glucose (UA) (Negative) g/dL Urine Ketones (NEGATIVE) Urine Occult Blood (Negative) Urine Nitrate (Negative) Urine Bilirubin (NEGATIVE) Urine Urobilinogen (0.2) E.U./dL Ur Leukocyte Esterase (NEGATIVE) Urine RBC (0-5/HPF) Urine WBC (0-5/HPF) Ur Squamous Epith Cells (0-5/HPF) Urine Bacteria (None) Ur Culture Indicated? SARS-CoV-2 (PCR) Negative (Negative) Influenza A (RT-PCR) Flu a negative (NEGATIVE) Influenza B (RT-PCR) Flu b negative (NEGATIVE) RSV (PCR) Negative (Negative) 07/17/22 Range/Units 09:30 WBC (4.5-11.0) X10^3/uL RBC (4.5-5.9) X10^6/uL Hgb (13.5-17.5) g/dL Hct (41-53) % MCV (80-100) fL MCH (26-34) PG MCHC (30-36) % RDW (11.6-14.8) % Plt Count (150-400) X10^3/uL Neut % (Auto) (50-75) % Lymph % (Auto) (25-40) % Delta % (Auto) (3-14) % Eos % (Auto) (2-4) % Baso % (Auto) (0-2) % Neut # (Auto) (8453-3344) /uL Lymph # (Auto) (8107-7944) /uL Delta # (Auto) (0-900) /uL Eos # (Auto) (0-450) /uL Baso # (Auto) (0-100) /uL PT (10.1-12.7) SECONDS INR (0.9-1.3) Sodium (137-145) mmol/L Potassium (3.4-5.1) mmol/L Chloride (98-107) mmol/L Carbon Dioxide (22-32) mmol/L BUN (9-20) mg/dL Creatinine (0.66-1.25) mg/dL Estimated GFR (>60) mL/min BUN/Creatinine Ratio (6-22) Glucose (70-100) mg/dL Lactate (0.7-2.1) mmol/L Calcium (8.4-10.2) mg/dL Magnesium (1.6-2.3) mg/dL Total Bilirubin (0.2-1.3) mg/dL AST (17-59) IU/L ALT (<50) IU/L Alkaline Phosphatase (38-126) U/L Total Creatine Kinase (55-170) U/L CK-MB (CK-2) CK-MB (CK-2) Rel Index Troponin I (0.01-0.034) ng/mL Total Protein (6.3-8.2) g/dL Albumin (3.5-5.0) g/dL Globulin (1.7-4.1) g/dL Albumin/Globulin Ratio (1.0-2.8) Lipase (23-300) U/L Procalcitonin (<0.5) ng/mL Urine Color Yellow Urine Appearance Clear Urine pH 7.0 (4.5-8.0) Ur Specific [place] 1.010 (1.000-1.035) Urine Protein Negative (Negative) Urine Glucose (UA) Negative (Negative) g/dL Urine Ketones Negative (NEGATIVE) Urine Occult Blood Trace-intact (Negative) Urine Nitrate Negative (Negative) Urine Bilirubin Negative (NEGATIVE) Urine Urobilinogen 0.2 (0.2) E.U./dL Ur Leukocyte Esterase Negative (NEGATIVE) Urine RBC 0-1/hpf (0-5/HPF) Urine WBC None seen (0-5/HPF) Ur Squamous Epith Cells None seen (0-5/HPF) Urine Bacteria None seen (None) Ur Culture Indicated? Cult not indicated SARS-CoV-2 (PCR) (Negative) Influenza A (RT-PCR) (NEGATIVE) Influenza B (RT-PCR) (NEGATIVE) RSV (PCR) (Negative) Urine Dip Bedside Urine Glucose Negative Bedside Urine Bilirubin - Negative Bedside Urine Ketone - Negative Urine Specific [place] 1.010 Bedside Urine Occult Blood +/- Bedside Urine pH 7.5 Bedside Urine Protein - Negative Bedside Urine Urobilinogen - Negative Bedside Urine Nitrite - Negative Bedside Urine Leukocytes - Negative Esterase MDM Narrative Medical decision making narrative: This is a 51-year-old male who presents with confusion, which appears to be expressive aphasia, persistent headaches since his surgery which have been rapidly worsening. Subjective chills with no other clear source found on examination. Patient has quite a bit difficulty following commands and performing NIH scale there is some possible drift of his right upper extremity he would expressive numbness of his right side or arm but patient has also appears confused and not just having expressive aphasia. Patient's initial non-con head CT is negative, CT angio shows hypodensity in left parietal lobe unchanged from 07/14/2022 with no significant hemodynamic changes to the circulation, carotid or vertebral arteries. Patient's labs including CBC, CMP, troponin do not show a clear source of his symptoms such as hyponatremia or obvious infection. Patient would not be a tPA candidate based on his recent surgery and waking up with his symptoms patient was given medication for headache including warfarin and Zofran, covered with IV antibiotics for potential infection with vanco and cefepime, given dose of dexamethasone although no obvious swelling on his exam. Patient's discharge summary from 05/24/2022 was obtained. It does note that on discharge stable vital signs neuro exam was deemed stable for discharge was having some difficulties with calculated processing such as text messaging and writing. Patient was discharged home on dexamethasone to start on May 27 for a total of 12 days. Patient case was discussed with Dr. Luis, neuro surgery. Patient's head CT and CT angio negative, reviewed his findings he is concerned about possible seizures, discussed we can not do EEG but covered with Keppra a 1000 mg b.i.d.. Also recommends Lovenox SC over heparin IV. Concerned about sagittal sinus thrombosis and asked if we can try to get MR venogram if Radiology does not appreciate obvious thrombosis or can not rule it out. I did speak with Dr. Figueroa with Radiology who reviewed images he had read the CT angio he states he can not totally ruled in or out. We are able to obtain MR which is negative for thrombosis. Awaiting transfer to [facility], patient is accepted. Patient's mentation was significantly improved on recheck at 1:00 p.m. and sort of waxed and waned in intensity. Patient signed out to Dr. Mahajan while awaiting transfer. [1800] (Keyshawn) Patient received in sign out from [Kyler]. I have reviewed the clinical course and performed an independent history and physical exam. As noted above we have an accepting physician but still no bed, no significant issues thus far [id number] -[facility] has called and has a bed ready, we may arrange for transport. Transport arranged for [facility] to arrive at about 2300. Patient is aware of diagnosis and plan <Nesha Chávez, DO - Last Filed: 07/17/22 19:36> Lab Data Labs: Lab Results 07/17/22 07/17/22 07/17/22 Range/Units 06:00 06:50 06:50 WBC 7.0 (4.5-11.0) X10^3/uL RBC 4.29 L (4.5-5.9) X10^6/uL Hgb 13.0 L (13.5-17.5) g/dL Hct 38.0 L (41-53) % MCV 88.6 (80-100) fL MCH 30.2 (26-34) PG MCHC 34.1 (30-36) % RDW 14.5 (11.6-14.8) % Plt Count 263 (150-400) X10^3/uL Neut % (Auto) 70.5 (50-75) % Lymph % (Auto) 21.0 L (25-40) % Delta % (Auto) 6.7 (3-14) % Eos % (Auto) 1.2 L (2-4) % Baso % (Auto) 0.6 (0-2) % Neut # (Auto) 4900 (2395-2752) /uL Lymph # (Auto) 1500 (9785-5353) /uL Delta # (Auto) 500 (0-900) /uL Eos # (Auto) 100 (0-450) /uL Baso # (Auto) 0 (0-100) /uL PT 13.3 H (10.1-12.7) SECONDS INR 1.2 (0.9-1.3) Sodium (137-145) mmol/L Potassium (3.4-5.1) mmol/L Chloride (98-107) mmol/L Carbon Dioxide (22-32) mmol/L BUN (9-20) mg/dL Creatinine (0.66-1.25) mg/dL Estimated GFR (>60) mL/min BUN/Creatinine Ratio (6-22) Glucose (70-100) mg/dL Lactate (0.7-2.1) mmol/L Calcium (8.4-10.2) mg/dL Magnesium (1.6-2.3) mg/dL Total Bilirubin (0.2-1.3) mg/dL AST (17-59) IU/L ALT (<50) IU/L Alkaline Phosphatase (38-126) U/L Total Creatine Kinase (55-170) U/L CK-MB (CK-2) CK-MB (CK-2) Rel Index Troponin I (0.01-0.034) ng/mL Total Protein (6.3-8.2) g/dL Albumin (3.5-5.0) g/dL Globulin (1.7-4.1) g/dL Albumin/Globulin Ratio (1.0-2.8) Lipase (23-300) U/L Procalcitonin 0.05 (<0.5) ng/mL Urine Color Urine Appearance Urine pH (4.5-8.0) Ur Specific [place] (1.000-1.035) Urine Protein (Negative) Urine Glucose (UA) (Negative) g/dL Urine Ketones (NEGATIVE) Urine Occult Blood (Negative) Urine Nitrate (Negative) Urine Bilirubin (NEGATIVE) Urine Urobilinogen (0.2) E.U./dL Ur Leukocyte Esterase (NEGATIVE) Urine RBC (0-5/HPF) Urine WBC (0-5/HPF) Ur Squamous Epith Cells (0-5/HPF) Urine Bacteria (None) Ur Culture Indicated? SARS-CoV-2 (PCR) (Negative) Influenza A (RT-PCR) (NEGATIVE) Influenza B (RT-PCR) (NEGATIVE) RSV (PCR) (Negative) 07/17/22 07/17/22 07/17/22 Range/Units 06:50 06:50 07:30 WBC (4.5-11.0) X10^3/uL RBC (4.5-5.9) X10^6/uL Hgb (13.5-17.5) g/dL Hct (41-53) % MCV (80-100) fL MCH (26-34) PG MCHC (30-36) % RDW (11.6-14.8) % Plt Count (150-400) X10^3/uL Neut % (Auto) (50-75) % Lymph % (Auto) (25-40) % Delta % (Auto) (3-14) % Eos % (Auto) (2-4) % Baso % (Auto) (0-2) % Neut # (Auto) (2239-1759) /uL Lymph # (Auto) (6625-6729) /uL Delta # (Auto) (0-900) /uL Eos # (Auto) (0-450) /uL Baso # (Auto) (0-100) /uL PT (10.1-12.7) SECONDS INR (0.9-1.3) Sodium 138 (137-145) mmol/L Potassium 3.5 (3.4-5.1) mmol/L Chloride 105 (98-107) mmol/L Carbon Dioxide 22 (22-32) mmol/L BUN 14 (9-20) mg/dL Creatinine 0.92 (0.66-1.25) mg/dL Estimated GFR > 60 (>60) mL/min BUN/Creatinine Ratio 15.2 (6-22) Glucose 125 H (70-100) mg/dL Lactate 1.5 (0.7-2.1) mmol/L Calcium 9.2 (8.4-10.2) mg/dL Magnesium 1.7 (1.6-2.3) mg/dL Total Bilirubin 0.4 (0.2-1.3) mg/dL AST 17 (17-59) IU/L ALT 20 (<50) IU/L Alkaline Phosphatase 75 (38-126) U/L Total Creatine Kinase 46 L (55-170) U/L CK-MB (CK-2) TNP CK-MB (CK-2) Rel Index TNP Troponin I < 0.012 (0.01-0.034) ng/mL Total Protein 7.6 (6.3-8.2) g/dL Albumin 4.5 (3.5-5.0) g/dL Globulin 3.1 (1.7-4.1) g/dL Albumin/Globulin Ratio 1.5 (1.0-2.8) Lipase 66 (23-300) U/L Procalcitonin (<0.5) ng/mL Urine Color Urine Appearance Urine pH (4.5-8.0) Ur Specific [place] (1.000-1.035) Urine Protein (Negative) Urine Glucose (UA) (Negative) g/dL Urine Ketones (NEGATIVE) Urine Occult Blood (Negative) Urine Nitrate (Negative) Urine Bilirubin (NEGATIVE) Urine Urobilinogen (0.2) E.U./dL Ur Leukocyte Esterase (NEGATIVE) Urine RBC (0-5/HPF) Urine WBC (0-5/HPF) Ur Squamous Epith Cells (0-5/HPF) Urine Bacteria (None) Ur Culture Indicated? SARS-CoV-2 (PCR) Negative (Negative) Influenza A (RT-PCR) Flu a negative (NEGATIVE) Influenza B (RT-PCR) Flu b negative (NEGATIVE) RSV (PCR) Negative (Negative) 07/17/22 Range/Units 09:30 WBC (4.5-11.0) X10^3/uL RBC (4.5-5.9) X10^6/uL Hgb (13.5-17.5) g/dL Hct (41-53) % MCV (80-100) fL MCH (26-34) PG MCHC (30-36) % RDW (11.6-14.8) % Plt Count (150-400) X10^3/uL Neut % (Auto) (50-75) % Lymph % (Auto) (25-40) % Delta % (Auto) (3-14) % Eos % (Auto) (2-4) % Baso % (Auto) (0-2) % Neut # (Auto) (0484-8234) /uL Lymph # (Auto) (2394-7778) /uL Delta # (Auto) (0-900) /uL Eos # (Auto) (0-450) /uL Baso # (Auto) (0-100) /uL PT (10.1-12.7) SECONDS INR (0.9-1.3) Sodium (137-145) mmol/L Potassium (3.4-5.1) mmol/L Chloride (98-107) mmol/L Carbon Dioxide (22-32) mmol/L BUN (9-20) mg/dL Creatinine (0.66-1.25) mg/dL Estimated GFR (>60) mL/min BUN/Creatinine Ratio (6-22) Glucose (70-100) mg/dL Lactate (0.7-2.1) mmol/L Calcium (8.4-10.2) mg/dL Magnesium (1.6-2.3) mg/dL Total Bilirubin (0.2-1.3) mg/dL AST (17-59) IU/L ALT (<50) IU/L Alkaline Phosphatase (38-126) U/L Total Creatine Kinase (55-170) U/L CK-MB (CK-2) CK-MB (CK-2) Rel Index Troponin I (0.01-0.034) ng/mL Total Protein (6.3-8.2) g/dL Albumin (3.5-5.0) g/dL Globulin (1.7-4.1) g/dL Albumin/Globulin Ratio (1.0-2.8) Lipase (23-300) U/L Procalcitonin (<0.5) ng/mL Urine Color Yellow Urine Appearance Clear Urine pH 7.0 (4.5-8.0) Ur Specific [place] 1.010 (1.000-1.035) Urine Protein Negative (Negative) Urine Glucose (UA) Negative (Negative) g/dL Urine Ketones Negative (NEGATIVE) Urine Occult Blood Trace-intact (Negative) Urine Nitrate Negative (Negative) Urine Bilirubin Negative (NEGATIVE) Urine Urobilinogen 0.2 (0.2) E.U./dL Ur Leukocyte Esterase Negative (NEGATIVE) Urine RBC 0-1/hpf (0-5/HPF) Urine WBC None seen (0-5/HPF) Ur Squamous Epith Cells None seen (0-5/HPF) Urine Bacteria None seen (None) Ur Culture Indicated? Cult not indicated SARS-CoV-2 (PCR) (Negative) Influenza A (RT-PCR) (NEGATIVE) Influenza B (RT-PCR) (NEGATIVE) RSV (PCR) (Negative) Urine Dip Bedside Urine Glucose Negative Bedside Urine Bilirubin - Negative Bedside Urine Ketone - Negative Urine Specific [place] 1.010 Bedside Urine Occult Blood +/- Bedside Urine pH 7.5 Bedside Urine Protein - Negative Bedside Urine Urobilinogen - Negative Bedside Urine Nitrite - Negative Bedside Urine Leukocytes - Negative Esterase Imaging Data CT scan - head: Radiologist's Impression: Close Head CT (Signed) Joann Figueroa - 07/17/22 Head/Neck CTA 07/17/[address] (Signed) Ivan Ybarra - 07/14/22 Brain MRI (Signed) Celena Greene - 12/14/21 Ankle X-Ray (Signed) Jose Chávez - 12/13/20 Foot X-Ray (Signed) Jose Chávez - 12/13/20 Foot X-Ray (Cancelled) 12/13/20 Brain MRI (Signed) Viry Bethea - 12/13/20 Brain MRI (Signed) Herberth Serrano - 11/13/19 Brain MRI (Signed) Celena Greene - 03/20/18 Launch?[place] [id number] CT Scan Report Signed Patient: Benigno Salvador MR#: [id number] : 1970 Acct:[id number] Age/Sex: 51 / M Date of Service: 07/17/22 Loc: ED Accession Number: [id number] ?? Procedure: CT head/brain wo con Ordering Provider: Theron Mahajan D.O. PROCEDURE:? CT HEAD/BRAIN WO CON ? INDICATIONS:? severe HOOKS, slurring words upon waking ? TECHNIQUE:? Noncontrast 4.5 mm thick angled axial sections acquired from the foramen magnum to the vertex, with coronal and sagittal reformats.? For radiation dose reduction, the following was used:? automated exposure control, adjustment of mA and/or kV according to patient size.? ? COMPARISON:? [facility], MR, MR HEAD/BRAIN WO/W CON, 12/14/2021, 19:16.? [facility], MR, MR HEAD/BRAIN WO/W CON, 12/13/2020, 16:01.? [facility], CT, CT HEAD/BRAIN WO CON, 07/14/2022, 13:19. ? FINDINGS:? Image quality:? Excellent.? ? CSF spaces:? Basal cisterns are patent.? No extra-axial fluid collections.? Ventricles are normal in size and shape.? ? Brain:? Postsurgical changes are seen in the left parietal lobe with hypodensity compatible with cerebral edema.? No midline shift.? No intracranial masses or hemorrhage. ?Ferris-white matter interface is normal.? ? Skull and face:? Left parietal craniotomy.? Calvarium and visualized facial bones are intact, without suspicious lesions.? ? Sinuses:? Bilateral maxillary sinus mucous retention cysts or polyps.? The mastoids are clear.? ? IMPRESSION:? ? 1. Stable postsurgical changes in left parietal region. 2. Bilateral maxillary sinus disease.? ? ? No significant discrepancy with the material handler 1st shift radiology preliminary report. ? ? Dictated by: Joann Figueroa M.D. on 07/17/2022 at 7:46 ? ? Approved by: Joann Figueroa M.D. on 07/17/2022 at 7:49?? CTA - brain/neck: Radiologist's Impression: Close Head CT (Signed) Joann Figueroa - 07/17/22 Head/Neck CTA (Signed) Joann Figueroa - 07/17/22 Launch?[facility] [address] [address] [address] Scan Report Signed Patient: Benigno Salvador MR#: [id number] : 1970 Acct:[id number] Age/Sex: 51 / M Date of Service: 07/17/22 Loc: ED Accession Number: [id number] ?? Procedure: CT angio head and neck Ordering Provider: Theron Mahajan D.O. PROCEDURE:? CT ANGIO HEAD AND NECK ? INDICATIONS:? HOOKS, slurring, recent meningioma resection ? TECHNIQUE:? After the administration of intravenous contrast, 1 mm thick sections acquired from the aortic arch through the [place] of Ba.? Post-contrast 4.5 mm thick sections then re-acquired from the foramen magnum to the vertex.? 3-dimensional fffouoc-wdkylaqsx-xjcryhnymr (MIP) and/or volume rendering reformats were acquired of the central intracranial vasculature and neck separately. For radiation dose reduction, the following was used:? automated exposure control, adjustment of mA and/or kV according to patient size.? ? COMPARISON:? [facility], MR, MR HEAD/BRAIN WO/W CON, 11/13/2019, 13:00.? [facility], MR, MR HEAD/BRAIN WO/W CON, 03/20/2018, 19:17.? [facility], CT, CT HEAD/BRAIN WO CON, 07/17/2022, 6:51.? [facility], CT, CT HEAD/BRAIN WO CON, 07/14/2022, 13:19.? [facility], MR, MR HEAD/BRAIN WO/W CON, 12/14/2021, 19:16.? [facility], MR, MR HEAD/BRAIN WO/W CON, 12/13/2020, 16:01. ? FINDINGS:? Image quality:? Excellent.? ? BRAIN:? CSF spaces:? Ventricles are normal in size and shape.? Basal cisterns are patent.? No extra-axial fluid collections.? ? Brain:? There is an area of hypodensity in the left parietal lobe, which appears minimally changed from 07/14/2022, but new since 12/14/2021, most likely related to recent craniotomy5.? No midline shift.? No intracranial bleeds or masses.? Ferris-white matter interface appears intact.? ? Skull and face:? Postsurgical changes related to left parietal craniotomy.? Calvarium and facial bones appear intact, without suspicious lesions.? Orbits appear normal.? ? Sinuses:? There are mucous retention cysts or polyps in maxillary sinuses bilaterally.? The mastoids are clear.? ? HEAD CT ANGIOGRAPHY:? Anterior circulation:? Intracranial internal carotid arteries are normal in size and flow.? The flow within the paired anterior cerebral arteries is normal and symmetric.? The flow within the middle cerebral arteries is normal and symmetric.? The anterior communicating artery is seen.? No aneurysms are seen.? ? Posterior circulation:? Visualized portions of the vertebral arteries demonstrate normal caliber, and join to form a normal appearing basilar artery.? Flow within the posterior cerebral arteries is normal and symmetric.? No aneurysms are seen.? ? NECK CT ANGIOGRAPHY:? Carotid system:? The great vessels demonstrate a conventional anatomy as they arise from the aortic arch.? The origins of the common carotid arteries appear patent.? The common carotid arteries demonstrate normal caliber and courses.? The bifurcation regions are both widely patent.? The internal carotid arteries demonstrate normal calibers and courses.? ? Posterior circulation:? The origins of the vertebral arteries both appear widely patent.? The more superior extracranial portions of both vertebral arteries also demonstrate normal courses and calibers.? They join to form a normal appearing basilar artery.? ? Soft tissues:? Visualized neck soft tissues demonstrate no suspicious abnormalities.? ? Bones:? No suspicious bony lesions.? Visualized cervical spine appears normally aligned.? IMPRESSION:? ? ? 1. Left parietal craniotomy.? Hypodensity in the left parietal lobe appears minimally changed since 07/14/2022, but new since 12/14/2022, presumably related to recent surgery.? Recommend clinical correlation and comparison to more recent outside imaging studies, if available.? If clinical symptoms persist or clinical suspicion for acute pathology is high, MRI is recommended for further evaluation. ? 2. No hemodynamic significant stenosis in anterior or posterior circulations. ? 3. No hemodynamic significant stenosis in cervical carotid arteries or vertebral arteries bilaterally. ? No significant discrepancy with the material handler 1st shift radiology preliminary report. ? ? Any quantitative measurements of stenosis were performed using NASCET criteria.? ? ? Dictated by: Joann Figueroa M.D. on 07/17/2022 at 7:50 ? ? Approved by: Joann Figueroa M.D. on 07/17/2022 at 8:44?? mr venogram: Radiologist's Impression: Close Head MRA (Signed) Ivan Ybarra - 07/17/[address] (Signed) Joann Figueroa - 07/17/22 Head/Neck CTA (Addendum) Joann Figueroa - 07/17/22 Launch?[facility] [address] [address] Magnetic Resonance Report Signed Patient: Benigno Salvador MR#: [id number] : 1970 Acct:[id number] Age/Sex: 51 / M Date of Service: 07/17/22 Loc: ED Accession Number: [id number] ?? Procedure: MR angio head wo con Ordering Provider: Nesha Chávez D.O. PROCEDURE:? MR ANGIO HEAD WO CON ? INDICATIONS:? eval for sag sinus thrombosis, had sx 05/23 craniotomy for ma ? TECHNIQUE:? Sagittal T1 spin echo through the brain.? Coronal 2D dkcl-fm-ucfgnv MR venogram, with 3-dimensional ivceopk-fyzgdbemx-rzauuxqiqu (MIP) reformats of the intracranial veins then performed.? ? COMPARISON:? [facility], MR, MR HEAD/BRAIN WO/W CON, 12/14/2021, 19:16.? [facility], CT, CT ANGIO HEAD AND NECK, 07/17/2022, 6:51.? [facility], CT, CT HEAD/BRAIN WO CON, 07/17/2022, 6:51.? [facility], CT, CT HEAD/BRAIN WO CON, 07/14/2022, 13:19. ? FINDINGS:? Image quality:? This examination is limited by involuntary motion artifact.? ? Veins:? Sagittal, straight, transverse, and sigmoid sinuses all appear patent.? However, the posterior aspect of the superior sagittal sinus appears thinned.? Asymmetry of the transverse sinuses is seen, right larger than left.? The degree of asymmetry is considered to be within physiologic limits. ? Brain:? Abnormal brain can again be seen within the left parietal region, which is better demonstrated on the recent prior CT study. ? Left-sided craniotomy changes are seen. ? ? ? IMPRESSION:? ? No significant MRV abnormality is identified. ? If clinically appropriate, please consider short-term follow-up.? ? Dictated by: Ivan Ybarra M.D. on 07/17/2022 at 12:30 ? ? Approved by: Ivan Ybarra M.D. on 07/17/2022 at 12:34?? ECG Data Attestation: I personally reviewed and interpreted this ECG as follows: Prior ECG tracings: not available for review Interpretation: Sinus rhythm rate 80 VT 140 QRS of 96 QTC of 440. No acute ST elevation depression noted. MDM Narrative Medical decision making narrative: This is a 51-year-old male who presents with confusion, which appears to be expressive aphasia, persistent headaches since his surgery which have been rapidly worsening. Subjective chills with no other clear source found on examination. Patient has quite a bit difficulty following commands and performing NIH scale there is some possible drift of his right upper extremity he would expressive numbness of his right side or arm but patient has also appears confused and not just having expressive aphasia. Patient's initial non-con head CT is negative, CT angio shows hypodensity in left parietal lobe unchanged from 07/14/2022 with no significant hemodynamic changes to the circulation, carotid or vertebral arteries. Patient's labs including CBC, CMP, troponin do not show a clear source of his symptoms such as hyponatremia or obvious infection. Patient would not be a tPA candidate based on his recent surgery and waking up with his symptoms patient was given medication for headache including warfarin and Zofran, covered with IV antibiotics for potential infection with vanco and cefepime, given dose of dexamethasone although no obvious swelling on his exam. Patient's discharge summary from 05/24/2022 was obtained. It does note that on discharge stable vital signs neuro exam was deemed stable for discharge was having some difficulties with calculated processing such as text messaging and writing. Patient was discharged home on dexamethasone to start on May 27 for a total of 12 days. Patient case was discussed with Dr. Luis, neuro surgery. Patient's head CT and CT angio negative, reviewed his findings he is concerned about possible seizures, discussed we can not do EEG but covered with Keppra a 1000 mg b.i.d.. Also recommends Lovenox SC over heparin IV. Concerned about sagittal sinus thrombosis and asked if we can try to get MR venogram if Radiology does not appreciate obvious thrombosis or can not rule it out. I did speak with Dr. Figueroa with Radiology who reviewed images he had read the CT angio he states he can not totally ruled in or out. We are able to obtain MR which is negative for thrombosis. Awaiting transfer to [facility], patient is accepted. Patient's mentation was significantly improved on recheck at 1:00 p.m. and sort of waxed and waned in intensity. Patient signed out to Dr. Mahajan while awaiting transfer. Critical Care Time <Theron Mahajan, DO - Last Filed: 07/17/22 22:59> Critical Care Time Attestation: The high probability of a clinically significant, sudden or life threatening deterioration of the [neuro] system(s) required my full and direct attention, intervention and personal management. The aggregate critical care time was 45[] minutes. This time is in addition to time spent performing reported procedures but includes the following: [x] Data Review and interpretation [x] Patient assessment and monitoring of vital signs [x] Documentation [x] Medication orders and management <Nesha Chávez, DO - Last Filed: 07/17/22 19:36> Critical Care Time Critical Care Time: Yes Total Critical Care Time: 45 Attestation: The high probability of a clinically significant, sudden or life threatening deterioration of the [neuro] system(s) required my full and direct attention, intervention and personal management. The aggregate critical care time was [] minutes. This time is in addition to time spent performing reported procedures but includes the following: [x] Data Review and interpretation [x] Patient assessment and monitoring of vital signs [x] Documentation [x] Medication orders and management Discharge Plan Departure Patient Disposition: [facility] Clinical Impression: Acute alteration in mental status, S/P craniotomy Prescriptions: No Action colchicine 0.6 mg tablet 0.6 mg PO DAILY Qty: 14 1RF Referrals: Wade Escalona MD [Primary Care Provider] -
[2022-07-17 06:59] LABS: Add Manual Diff / Slide Review NO; Basophils Absolute Auto 0 /uL (0-100); Basophils Percent Auto 0.6 % (0-2); Eosinophils Absolute Auto 100 /uL (0-450); Eosinophils Percent Auto 1.2 % (2-4); Lymphocytes Absolute Auto 1500 /uL (1100-4500); Mean Corpuscular HGB Conc 34.1 % (30-36); Mean Corpuscular Hemoglobin 30.2 PG (26-34); Mean Corpuscular Volume 88.6 fL (80-100); Monocytes Absolute Auto 500 /uL (0-900); Monocytes Percent Auto 6.7 % (3-14); Neutrophils Absolute Auto 4900 /uL (1500-7000); Neutrophils Percent Auto 70.5 % (50-75); Platelet Count 263 X10^3/uL (150-400); Red Blood Cell Count 4.29 X10^6/uL (4.5-5.9); Red Cell Distribution Width 14.5 % (11.6-14.8)
[2022-07-17 07:09] LABS: INR 1.2 (0.9-1.3); Prothrombin Time 13.3 SECONDS (10.1-12.7)
[2022-07-17 07:14] LABS: Lactate (Lactic Acid) 1.5 mmol/L (0.7-2.1)
[2022-07-17 07:16] LABS: Alanine Aminotransferase 20 IU/L (<50); Albumin 4.5 g/dL (3.5-5.0); Albumin Globulin Ratio 1.5 (1.0-2.8); Alkaline Phosphatase 75 U/L (38-126); Aspartate Aminotransferase 17 IU/L (17-59); BUN Creatinine Ratio 15.2 (6-22); Bilirubin Total 0.4 mg/dL (0.2-1.3); Blood Urea Nitrogen 14 mg/dL (9-20); Calcium 9.2 mg/dL (8.4-10.2); Carbon Dioxide 22 mmol/L (22-32); Chloride 105 mmol/L (98-107); Creatine Kinase 46 U/L (55-170); Estimated Glomerular Filt Rate > 60 mL/min (>60); Globulin 3.1 g/dL (1.7-4.1); Glucose 125 mg/dL (70-100); HEMOLYSIS < 15 (0-50); Lipase 66 U/L (23-300); Magnesium 1.7 mg/dL (1.6-2.3); Potassium 3.5 mmol/L (3.4-5.1); Sodium 138 mmol/L (137-145); Total Protein 7.6 g/dL (6.3-8.2)
[2022-07-17 07:27] LABS: Troponin I < 0.012 ng/mL (0.01-0.034)
[2022-07-17] MEDS: ONDANSETRON 4 MG/2 ML INJ IV (08:02)
[2022-07-17] MEDS: MORPHINE 4 MG/ML INJ IV (08:02)
[2022-07-17] MEDS: DEXAMETHASONE 10 MG/ML VIAL IV (08:10)
[2022-07-17] MEDS: CEFEPIME 2 GM in SODIUM CHLORIDE 0.9% 100 ML IV (08:10)
[2022-07-17 08:40] LABS: Influenza A - CEPHEID Flu A NEGATIVE (NEGATIVE); Influenza B - CEPHEID Flu B NEGATIVE (NEGATIVE); Respiratory Syncytial Virus Negative (Negative)
[2022-07-17 08:44] LABS: COVID-19 CEPHEID 4-PLEX PCR Negative (Negative)
[2022-07-17 08:46] LABS: Procalcitonin 0.05 ng/mL (<0.5)
[2022-07-17] MEDS: VANCOMYCIN 2,000 MG/400 ML PIGGYBACK 200 MG IV (09:27)
[2022-07-17 09:38] LABS: Appearance Urine UA CLEAR; Bilirubin Urine UA NEGATIVE (NEGATIVE); Color Urine UA YELLOW; Glucose Urine UA NEGATIVE (Negative); Ketones Urine UA NEGATIVE (NEGATIVE); Leukocyte Esterase Urine UA NEGATIVE (NEGATIVE); Nitrite Urine UA NEGATIVE (Negative); Occult Blood Urine UA TRACE-INTACT (Negative); Protein Urine UA NEGATIVE (Negative); Urobilinogen Urine UA 0.2 E.U./dL (0.2)
[2022-07-17 09:45] LABS: Bacteria Urine None Seen; RBC Urine 0-1/HPF (0-5/HPF); Squamous Epithelial Cell Urine None Seen (0-5/HPF); WBC Urine None Seen (0-5/HPF)
[2022-07-17 09:46] LABS: Culture Indicated Urine Cult Not Indicated
[2022-07-17] MEDS: ENOXAPARIN 100 MG/ML SYRINGE 140 MG SUBCUT ×2 (10:40→21:19)
[2022-07-17] MEDS: levETIRAcetam 1,000 MG in SODIUM CHLORIDE 0.9% 100 ML 440 MG IV ×2 (10:41→21:10)
[2022-07-17] MEDS: KETOROLAC 30 MG/ML VIAL 15 MG IV (10:41)
--- NOTE | 2022-07-17 10:52 | DI.MRI.S_ITS ---
PROCEDURE: MR ANGIO HEAD WO CON INDICATIONS: eval for sag sinus thrombosis, had sx 05/23 craniotomy for ma TECHNIQUE: Sagittal T1 spin echo through the brain. Coronal 2D wgsy-mh-yqftjd MR venogram, with 3-dimensional bwxallh-fcixmudfe-qejcvuxask (MIP) reformats of the intracranial veins then performed. COMPARISON: [facility], MR, MR HEAD/BRAIN WO/W CON, 12/14/2021, 19:16. [facility], CT, CT ANGIO HEAD AND NECK, 07/17/2022, 6:51. [facility], CT, CT HEAD/BRAIN WO CON, 07/17/2022, 6:51. [facility], CT, CT HEAD/BRAIN WO CON, 07/14/2022, 13:19. FINDINGS: Image quality: This examination is limited by involuntary motion artifact. Veins: Sagittal, straight, transverse, and sigmoid sinuses all appear patent. However, the posterior aspect of the superior sagittal sinus appears thinned. Asymmetry of the transverse sinuses is seen, right larger than left. The degree of asymmetry is considered to be within physiologic limits. Brain: Abnormal brain can again be seen within the left parietal region, which is better demonstrated on the recent prior CT study. Left-sided craniotomy changes are seen. IMPRESSION: No significant MRV abnormality is identified. If clinically appropriate, please consider short-term follow-up. Dictated by: Ivan Ybarra M.D. on 07/17/2022 at 12:30 Approved by: Ivan Ybarra M.D. on 07/17/2022 at 12:34
--- NOTE | 2022-07-17 11:38 | PC.NURSE ---
Addendum entered by Dawna Martinez R.N. 07/17/22 11:40: Pt had difficult with straw, attempting to drink out of lid, coached by spouse at bedside to drink from straw and reminded with subsequent sips. Pt swallows without difficulty. Assessed pain since administration of Ketorolac, pt states I don't know what you mean by pain relief medicine, reminded pt of recent administration, pt still confused about receiving but verbalizes improvement in his headache recently. Original Note: Patient provided cup of water with OK from Dr. Chávez, instructed after this cup no more until MRI is complete with results.
--- NOTE | 2022-07-17 12:19 | PC.NURSE ---
Pt noted to desat to 85%, in room with eyes closed, spouse at bedside reports pt has sleep apnea and wears cpap at night, 2L NC applied.
[2022-07-17] MEDS: OXYCODONE IR 5 MG TABLET PO (17:32)
[2022-07-17] MEDS: ACETAMINOPHEN 325 MG TABLET 650 MG PO (17:32)
--- NOTE | 2022-07-17 17:43 | PC.NURSE ---
Addendum entered by Dawna Martinez R.N. 07/17/22 17:46: Pt intermittently speaking clearly and then slurred, difficulty finding words. Pt recognizes he is going in and out, states approximately an hour ago he wasn't having the difficulty. Pt and spouse updated on plan of care, awaiting a bed assignment for transfer. No further questions. Original Note: Pt sitting at bedside consuming dinner tray appropriately, tolerating well.
[2022-07-18 12:25] LABS: Acinetobacter baumannii Not Detected (Not Detect); Candida albicans Not Detected (Not Detect); Candida glabrata Not Detected (Not Detect); Candida krusei Not Detected (Not Detect); Candida parapsilosis Not Detected (Not Detect); Candida tropicalis Not Detected (Not Detect); E. coli Not Detected (Not Detect); Enterobacter cloacae complex Not Detected (Not Detect); Enterobacteriaceae species Not Detected (Not Detect); Enterococcus species Not Detected (Not Detect); Haemophilus influenzae Not Detected (Not Detect); Listeria monocytogenes Not Detected (Not Detect); Methicillin-resistant gene Not Detected (Not Detect); Neisseria meningitidis Not Detected (Not Detect); Proteus species Not Detected (Not Detect); Pseudomonas aeruginosa Not Detected (Not Detect); Serratia marcescens Not Detected (Not Detect); Staphylococcus species Detected (Not Detect); Streptococcus agalactiae (Gr B Not Detected (Not Detect); Streptococcus pneumonia Not Detected (Not Detect); Streptococcus pyogenes (Gr A) Not Detected (Not Detect); Streptococcus species Not Detected (Not Detect)
== END 2022-07-17 23:20 | disposition short-term general hospital (02) ==
PROVIDERS: Emergency Medicine; Emergency Provider Emergency Medicine; PCP Internal Medicine
DX: R41.82 Altered mental status, unspecified (principal); R47.01 Aphasia; R51.9 Headache, unspecified; Z98.890 Other specified postprocedural states; Z20.822 Contact with and (suspected) exposure to COVID-19
CPT/HCPCS: 0241U; 36415; 51798; 70450; 70496; 70498; 70544; 80053; 81001; 81003; 82550; 83605; 83690; 83735; 84145; 84484; 85025; 85610; 87040; 87150; 87205; 93005; 96365; 96366; 96367; 96368; 96372; 96375; 99285; 99291; J0692; J1100; J1650; J1885; J1953; J2270; J2405; Q9967

== ENCOUNTER → 2023-05-21 18:38 | Outpatient (CLI) | payer BC, SELFPAY ==
--- NOTE | 2023-05-21 | DI.MRI.S_ITS ---
PROCEDURE: MR HEAD/BRAIN WO/W CON INDICATIONS: Benign neoplasum TECHNIQUE: Noncontrast axial T1 spin echo, axial T2 fast spin echo, sagittal and axial FLAIR, coronal T2 fast spin echo, axial gradient echo, axial diffusion and ADC through the brain. After the administration of contrast, axial and coronal and sagittal 3D VIBE or T1 spin echo with fat saturation through the brain. COMPARISON: [facility], MR, MR HEAD/BRAIN WO/W CON, 12/14/2021, 19:16. FINDINGS: Image quality: Artifact from [employer]NA[employer] catheter and reservoir limits evaluation.. CSF Spaces: Right frontal approach [employer] shunt catheter. Basal cisterns are patent. No extra-axial fluid collections. The right lateral ventricle is asymmetrically small compared to the left. Brain: Encephalomalacia and gliosis within the left parietal lobe. No midline shift. No intracranial bleeds or masses. No abnormal intracranial enhancement. The brainstem appears normal. Diffusion-weighted images demonstrate no acute ischemic insults. No chronic ischemic insults. Normal intravascular flow voids are present. Skull and face: Postsurgical changes from prior left-sided craniotomy. Previously seen enhancement within the left parietal scalp is no longer visualized. Calvarial marrow is normal in signal. Orbits appear normal. Sinuses: Sinuses and mastoids appear clear. IMPRESSION: 1. Postsurgical changes from left-sided craniotomy and resection of soft tissue lesion. No evidence of abnormal enhancement within the surgical bed to suggest residual or recurrent tumor. Recommend attention on follow-up. 2. Mild encephalomalacia and gliosis within the left parietal lobe, likely postsurgical or post treatment related. 3. Right frontal ventriculostomy catheter in place. The right lateral ventricle is asymmetrically small compared to the left with a near slit like morphology. Dictated by: Kalia Castillo M.D. on 05/22/2023 at 9:07 Approved by: Kalia Castillo M.D. on 05/22/2023 at 9:18
== END ==
PROVIDERS: PCP Internal Medicine; Referring Provider Neurological Surgery; Visit Provider Neurological Surgery
DX: D32.9 Benign neoplasm of meninges, unspecified (principal); G93.89 Other specified disorders of brain; Z98.890 Other specified postprocedural states; Z96.89 Presence of other specified functional implants
CPT/HCPCS: 70553; A9579